=== PATIENT | female | born 1955 | race Caucasian/White ===

== ENCOUNTER 2017-05-21 10:28 | Emergency (ER) | payer OTHER ==
[2017-05-21] MEDS: DEXAMETHASONE 10 MG/ML 1 ML INJ IV (14:15)
[2017-05-21] MEDS: CEFTRIAXONE 2 GM/50 ML (PMX) 50 ML IVPB (14:31)
[2017-05-21] MEDS: DIPHENHYDRAMINE 2.5 MG/ML 5ML CUP PO (15:18)
== END 2017-05-21 15:25 | disposition home or self-care (01) ==
LOC: FTE 10:28
DX: L03.116 Cellulitis of left lower limb (principal); E66.01 Morbid (severe) obesity due to excess calories
CPT/HCPCS: 96374; 96375; 99284-25

== ENCOUNTER 2017-10-24 16:44 | Emergency (ER) | payer OTHER ==
[2017-10-24] MEDS: LABETALOL HCL 20MG INJ IV (22:11)
[2017-10-24 23:13] LABS: ADD MAN DIFF? NO
[2017-10-24 23:16] LABS: BASOPHIL # 0.1 10^3/ul (0.0-0.1); BASOPHILS % 0.5 % (0.0-2.0); EOSINOPHILS # 0.3 10^3/ul (0.0-0.5); EOSINOPHILS % 2.3 % (0.0-7.0); HEMATOCRIT 42.9 % (37.0-47.0); LYMPHOCYTES # 4.3 10^3/ul (0.8-2.9); LYMPHOCYTES % 38.1 % (15.0-51.0); MEAN CORPUSCULAR HEMOGLOBIN 29.7 pg (29.0-33.0); MEAN CORPUSCULAR HGB CONC 32.6 g/dl (32.0-37.0); MEAN CORPUSCULAR VOLUME 91.1 fl (82.0-101.0); MEAN PLATELET VOLUME 10.2 fl (7.4-10.4); MONOCYTE # 0.9 10^3/ul (0.3-0.9); MONOCYTES % 8.2 % (0.0-11.0); NEUTROPHIL # 5.7 10^3/ul (1.6-7.5); NEUTROPHILS % 50.5 % (39.0-77.0); PLATELET COUNT 317 10^3/UL (140-415); RED BLOOD COUNT 4.71 10^6/ul (4.20-5.40); RED CELL DISTRIBUTION WIDTH 12.7 % (11.5-14.5)
[2017-10-24 23:16] LABS: WHITE BLOOD COUNT 11.2 10^3/ul (4.8-10.8)
[2017-10-24 23:35] LABS: INR 0.96; PROTIME 12.9 Sec (11.9-14.9)
[2017-10-24 23:36] LABS: PARTIAL THROMBOPLASTIN TIME 33.2 Sec (25.0-35.0)
[2017-10-24 23:42] LABS: ALANINE AMINOTRANSFERASE 44 IU/L (13-69); ALBUMIN 4.3 g/dl (3.3-4.9); ALBUMIN/GLOBULIN RATIO 1.38; ALKALINE PHOSPHATASE 83 IU/L (42-121); ANION GAP 17 (8-16); ASPARTATE AMINO TRANSFERASE 32 IU/L (15-46); BILIRUBIN,INDIRECT 0.9 mg/dl (0-1.1); BILIRUBIN,TOTAL 0.9 mg/dl (0.2-1.3); BLOOD UREA NITROGEN 19 mg/dl (7-20); CARBON DIOXIDE 29 mmol/L (21-31); CHLORIDE 101 mmol/L (97-110); CREATININE 0.74 mg/dl (0.44-1.00); GLUCOSE 96 mg/dl (70-220); POTASSIUM 4.2 mmol/L (3.5-5.1); SODIUM 143 mmol/L (135-144); TOTAL PROTEIN 7.4 g/dl (6.1-8.1)
[2017-10-24] MEDS: morphine 4 MG/ML VIAL IV (23:43)
[2017-10-24 23:53] LABS: TROPONIN-I < 0.012 ng/ml (0.000-0.120)
[2017-10-25] MEDS: morphine 4 MG/ML VIAL IV (00:19)
[2017-10-25] MEDS: ONDANSETRON 4 MG INJ IV ×2 (00:19→00:53)
== END 2017-10-25 00:57 | disposition home or self-care (01) ==
LOC: E/R 10-25 00:57
DX: M79.605 Pain in left leg (principal); M79.604 Pain in right leg; I10 Essential (primary) hypertension
CPT/HCPCS: 73590; 80053; 84484; 85025; 85610; 85730; 93005; 93970; 99285-25